=== PATIENT | male | born 1960 ===

== ENCOUNTER 2022-04-14 11:42 | Observation (INO) ==
[~2022-04-14 11:42] MED LIST: Buffered Lidocaine 1% SYRIN 1 ml INTRADERM ONE; Ketamine HCL 50 mg/ml 10 ml VIAL (500 MG) ONE; Lactated Ringers 1000 ml BAG 1,000 ML IV SCH; Propofol 10 MG/ML 20 ML BTL ONE
[2022-04-14] MEDS ORDERED: ceFAZolin 2 GM in NS PREMIX 2 GM/100 ML BAG IVPB ONE (12:00)
[2022-04-14] MEDS ORDERED: Ondansetron 4 mg VIAL 2 MG/ML 2 ml VIAL IV PRN ×2 (13:20→16:40)
[2022-04-14] MEDS ORDERED: Acetaminophen IV 1 GM/100ML 1,000 MG/100 ML BAG IV PRN (13:20)
[2022-04-14] MEDS ORDERED: Naloxone 0.4 mg VIAL 0.4 mg/ml 1 ml VIAL IV PRN (13:20)
[2022-04-14] MEDS ORDERED: Midazolam 2 mg/2 ml VIAL 1 mg/ml 2 ml VIAL (2 mg) ONE (14:45)
[2022-04-14] MEDS ORDERED: Propofol 10 MG/ML 20 ML BTL ONE ×5 (14:53→17:27)
[2022-04-14] MEDS ORDERED: Phenylephrine 40 mcg/mL 10mL (400mcg) SYRINGE ONE ×3 (15:05→16:20)
[2022-04-14] MEDS ORDERED: Glycopyrrolate IV 0.2 MG/ML 1 ML VIAL ONE (15:08)
[2022-04-14] MEDS ORDERED: Acetaminophen IV 1 GM/100ML 1,000 MG/100 ML BAG IV ONE (16:10)
[2022-04-14] MEDS ORDERED: Ondansetron 4 mg VIAL 2 MG/ML 2 ml VIAL ONE ×2 (16:13→18:33)
[2022-04-14] MEDS ORDERED: Lactulose 30 ml UDC PO PRN (16:40)
[2022-04-14] MEDS ORDERED: Morphine 2 MG/ML SYRINGE IV PRN (16:40)
[2022-04-14] MEDS ORDERED: Ondansetron ODT 4 mg TAB 4 MG TAB PO PRN (16:40)
[2022-04-14] MEDS ORDERED: Magnesium Hydroxide LIQ 30 ML UDC PO PRN (16:40)
[2022-04-14] MEDS ORDERED: HYDROmorphone 1 MG/1 ML SYRINGE ONE (17:50)
[2022-04-14] MEDS: fentaNYL 100 mcg/2 ml 50 MCG/ML VIAL IV PRN ×4 (17:51→18:13)
[2022-04-14] MEDS: HYDROmorphone 1 MG/1 ML SYRINGE IV PRN ×5 (17:51→18:55)
[2022-04-14] MEDS ORDERED: fentaNYL 100 mcg/2 ml 50 MCG/ML VIAL ONE (17:51)
[2022-04-14] MEDS: Lactated Ringers 1000 ml BAG 1,000 ML IV SCH (19:35)
[2022-04-14] MEDS: Magnesium Hydroxide LIQ 30 ML UDC PO SCH (21:43)
[2022-04-15] MEDS: ceFAZolin 1 GM ADVAN 1 GM in NS 0.9% 50 ML 50 ML IVPB SCH ×3 (00:07→14:32)
[2022-04-15 06:41] LABS: Hematocrit 37 % (42-52); Hemoglobin 12.4 g/dL (14.0-18.0); Mean Platelet Volume 8.1 fL (7.4-10.4); Platelet Count 208 10^3/uL (150-450)
[2022-04-15 07:06] LABS: Calcium 8.6 mg/dL (8.6-10.3); Potassium 4.4 mmol/L (3.5-5.0)
[2022-04-15] MEDS: Lactated Ringers 1000 ml BAG 1,000 ML IV SCH (07:10)
[2022-04-15] MEDS: Magnesium Hydroxide LIQ 30 ML UDC PO SCH (08:20)
[2022-04-15] MEDS ORDERED: Vitamin THERAPEUTIC TAB PO SCH (09:00)
[2022-04-15 11:44] VITALS: BP 147/78
== END 2022-04-15 15:20 | disposition home or self-care (01) ==
LOC: SSU 11:42 → OR 11:42
PROVIDERS: ADMIT Orthopaedic Surgery Adult Reconstructive Orthopaedic Surgery; ATTEND Orthopaedic Surgery Adult Reconstructive Orthopaedic Surgery